=== PATIENT | female | born 1985 | race Caucasian/White ===

== ENCOUNTER 2021-10-10 09:54 | Emergency (ER) | payer OTHER ==
[~2021-10-10] VITALS: Ht 170.2 cm; Wt 104.3 kg
[2021-10-10 10:06] VITALS: BP 194/113
--- NOTE | 2021-10-10 11:39 | NUR ---
pt was called by rodrigo, no answer at this time
--- NOTE | 2021-10-10 11:48 | NUR ---
name called again, no answer
--- NOTE | 2021-10-10 11:48 | NUR ---
lwbs at this time
== END 2021-10-10 11:48 | disposition left against medical advice (07) ==
LOC: MED 09:54
DX: H92.01 Otalgia, right ear (principal); Z53.21 Procedure and treatment not carried out due to patient leaving prior to being seen by health care provider

== ENCOUNTER 2022-07-26 18:11 | Emergency (ER) | payer OTHER ==
[~2022-07-26] VITALS: Ht 172.7 cm; Wt 107.5 kg
[2022-07-26] MEDS ORDERED: ALBUTEROL SULFATE/IPRATROPIU 3 ML SOL IH ONE ×2 (18:25→19:25)
[2022-07-26] MEDS ORDERED: methylPREDNISolone SS 125 MG/2 ML VIAL IVP ONE (18:25)
[2022-07-26 18:28] VITALS: BP 125/66
--- NOTE | 2022-07-26 18:31 | NUR ---
PATIENT PRESENTS WITH ASTHMA ATTACK, STATES SHE HAS BEEN USING HER NEBULIZER ALL DAY BUT HAS NOT FOUND ANY RELIEF. WHEEZING NOTED THROUGHOUT BILATERAL LUNG ADAMS
--- NOTE | 2022-07-26 18:31 | NUR ---
AMBULATED TO BED 8. HHN ORDERED BY DR. DIANA
--- NOTE | 2022-07-26 19:21 | NUR ---
Pt report given to SUNSHINE PEÑA. Transfer of care at this time.
[2022-07-26] MEDS ORDERED: PRED20TA5 PO (20:47)
--- NOTE | 2022-07-26 21:13 | NUR ---
Patient discharged with v/s stable. Written and verbal after care instructions given and explained. Patient verbalized understanding. Ambulatory with steady gait. All questions addressed prior to discharge. Advised to follow up with PMD.
== END 2022-07-26 21:13 | disposition home or self-care (01) ==
LOC: MED 18:11
DX: J45.901 Unspecified asthma with (acute) exacerbation (principal); Z79.899 Other long term (current) drug therapy
CPT/HCPCS: 94640; 96374; 99283; J2930

== ENCOUNTER 2024-05-04 11:00 | Emergency (ER) | payer OTHER ==
[~2024-05-04] VITALS: Ht 175.3 cm; Wt 108.9 kg
[~2024-05-04 11:00] MED LIST: PRED20TA5 PO
[2024-05-04 11:10] VITALS: BP 138/99; PULSE 108; RESP 26; TEMP 98.3; O2SAT 96
[2024-05-04] MEDS: ALBUTEROL SULFATE/IPRATROPIU 3 ML SOL IH STA (11:14)
[2024-05-04] MEDS: ALBUTEROL 0.083% 2.5 MG/3 ML NEBU INH ONE ×2 (11:14→11:52)
[2024-05-04] MEDS: ALBUTEROL SULFATE/IPRATROPIU 3 ML SOL IH ONE ×2 (11:17→11:51)
[2024-05-04 11:18] VITALS: PULSE 105; RESP 20; O2SAT 96
[2024-05-04 11:42] VITALS: PULSE 105; RESP 20; O2SAT 96
[2024-05-04] MEDS: predniSONE 20 MG TAB PO ONE (11:49)
[2024-05-04 11:52] VITALS: PULSE 93; RESP 23; O2SAT 96
[2024-05-04] MEDS ORDERED: PRED20TA5 PO (12:14)
== END 2024-05-04 12:18 | disposition home or self-care (01) ==
LOC: MED 11:00
DX: J45.901 Unspecified asthma with (acute) exacerbation (principal); R03.0 Elevated blood-pressure reading, without diagnosis of hypertension; Z79.899 Other long term (current) drug therapy
CPT/HCPCS: 94640; 99284; J7512; J7613